=== PATIENT | male | born 2000 | race Caucasian/White ===

== ENCOUNTER 2023-08-18 20:35 | Emergency (ER) | payer OTHER ==
[~2023-08-18] VITALS: Ht 172.7 cm; Wt 65.8 kg
[2023-08-18 20:41] VITALS: BP 133/70; PULSE 98; RESP 16; TEMP 98.7; O2SAT 98
== END 2023-08-18 21:21 ==
LOC: MED 20:35
DX: Z02.89 Encounter for other administrative examinations (principal); V49.88XA Car occupant (driver) (passenger) injured in other specified transport accidents, initial encounter; Y93.89 Activity, other specified; Y92.89 Other specified places as the place of occurrence of the external cause; Y99.8 Other external cause status
CPT/HCPCS: 99283